=== PATIENT | female | born 2000 | race Two or more races ===

== ENCOUNTER 2024-08-06 10:52 | Outpatient (REF) | payer SELFPAY ==
[2024-08-06 13:34] LABS: Hemoglobin 14.9 g/dl (12.0-16.0); Mean Corpuscular HGB Conc 33.9 g/dl (31.0-35.0); Mean Corpuscular Hemoglobin 31.1 pg (27.0-33.0); Mean Corpuscular Volume 91.9 fL (80.0-98.0); Mean Platelet Volume 9.3 fL (9.4-12.3); Platelet Count 303 X10*3/uL (160-400); Red Blood Count 4.79 X10*6/uL (4.20-5.50); White Blood Count 5.5 X10*3/uL (4.8-10.8)
[2024-08-06 13:46] LABS: Estimated Average Glucose 105 mg/dL; Hemoglobin A1C 128.3711 umol/L; Hemoglobin A1c % 5.3 % (<6.0); Total Hemoglobin (HGBA1C) 3764.2248 umol/L
[2024-08-06 13:57] LABS: Alanine Aminotransferase 16 U/L (0-31); Albumin Level 4.7 g/dL (3.5-5.0); Alkaline Phosphatase 63 U/L (39-117); Anion Gap 14 (12-20); Aspartate Amino Transferase 20 U/L (5-31); Bilirubin Total 0.6 mg/dL (0.0-1.0); Blood Urea Nitrogen 10 mg/dL (9-16); Calcium 9.9 mg/dL (8.4-10.2); Carbon Dioxide 25 mmol/L (22-29); Chloride 103 mmol/L (96-108); Estimated Glomerular Filt Rate > 60; Glucose Random 87 mg/dL (60-115); Potassium 4.1 mmol/L (3.3-5.1); Sodium 138 mmol/L (135-145); Total Protein 8.3 g/dL (6.5-8.0)
[2024-08-06 14:02] LABS: Alanine Aminotransferase 15 U/L (0-31); Albumin Level 4.7 g/dL (3.5-5.0); Alkaline Phosphatase 62 U/L (39-117); Anion Gap 14 (12-20); Aspartate Amino Transferase 21 U/L (5-31); Bilirubin Total 0.6 mg/dL (0.0-1.0); Blood Urea Nitrogen 10 mg/dL (9-16); Calcium 9.9 mg/dL (8.4-10.2); Carbon Dioxide 25 mmol/L (22-29); Chloride 103 mmol/L (96-108); Cholesterol 234 mg/dL (<200); Estimated Glomerular Filt Rate > 60; Glucose Random 87 mg/dL (60-115); HDL Cholesterol 64 mg/dL (>40); LDL Cholesterol Calculated 150 mg/dL (<100); Potassium 4.2 mmol/L (3.3-5.1); Sodium 138 mmol/L (135-145); Total Protein 8.4 g/dL (6.5-8.0); Triglycerides 104 mg/dL (<150)
[2024-08-06 14:14] LABS: TSH reflex Free T4 0.59 uIU/mL (0.32-4.0)
[2024-08-07 08:10] LABS: HIV Num 1 72.01 S/CO (0.00-0.99)
[2024-08-07 08:13] LABS: Hepatitis A Antibody IgG REACTIVE (Nonreactive); ~Hepatitis A Antibody IgG 10.63 S/CO (0.00-0.99)
[2024-08-07 08:18] LABS: HBS Num1 0.48 mIU/mL (0-7.99); HBc Num1 0.09 S/CO (0.00-0.79); HBsAGNum1 0.53 S/CO (0.00-0.99); Hepatitis B Core Antibody Nonreactive (Nonreactive); Hepatitis B Surface Antigen Negative (Negative); ~HepC Num1 0.16 S/CO (0.00-0.79); ~Hepatitis B Surface Antibody NONREACTIVE (Nonreactive); ~Hepatitis C Antibody Nonreactive (Nonreactive)
[2024-08-07 08:27] LABS: Syphilis Screen Reactive (Nonreactive)
[2024-08-07 10:27] LABS: HIV Num 3 70.12 S/CO
[2024-08-07 10:28] LABS: HIV AB/AG Reactive (Nonreactive)
[2024-08-07 11:24] LABS: Cytomegalovirus Ab IgM <30.00 AU/mL; Varicella IgG Antibody 1.54 S/CO
[2024-08-07 17:23] LABS: Rubella IgG Antibody 2.61 Index; Rubeola IgG (Measles) <13.50 AU/mL
[2024-08-08 08:28] LABS: Toxoplasma IgM Antibody <8.00 AU/mL
[2024-08-08 15:23] LABS: HIV RNA PCR Qn Copies NOT DETECTED copies/mL (NOT DETECTED); HIV RNA PCR Qn Log Copies NOT DETECTED (NOT DETECTED)
[2024-08-08 17:59] LABS: HIV 1 Antibody POSITIVE (NEGATIVE); HIV 2 Antibody NEGATIVE (NEGATIVE)
[2024-08-09 03:54] LABS: TS Negative Control Passed; TS Panel A 0; TS Panel B 0; TS Positive Control Passed; TSpotTB Negative (Negative)
[2024-08-11 04:08] LABS: C. Trachomatis RNA TMA, Throat NOT DETECTED; N. gonorrhoeae RNA TMA, Throat NOT DETECTED
[2024-08-11 17:42] LABS: Absolute CD3 Count 1542 cells/uL (840-3060); Absolute CD4 Count 773 cells/uL (490-1740); Absolute CD8 Count 713 cells/uL (180-1170); Absolute Lymphocytes 1868 cells/uL (850-3900); CD4 CD8 Ratio 1.08 (0.86-5.00); Percent CD3 Cells 83 % (57-85); Percent CD4 Cells 41 % (30-61); Percent CD8 Cells 38 % (12-42)
[2024-08-12 22:44] LABS: Glucose-6-Phosphate Dehydrogen 13.9 U/g Hgb (7.0-20.5)
[2024-08-13 13:58] LABS: RPR Quantitative Non-Reactive (Nonreactive); T.Pallidum Particle Agg Test Reactive (Nonreactive)
[2024-08-20 14:13] LABS: HLA B 5701 Negative
== END 2024-08-06 10:53 | disposition home or self-care (01) ==
LOC: HO.HHCL 10:52
PROVIDERS: Internal Medicine; Student in an Organized Health Care Education/Training Program
DX: Z21 Asymptomatic human immunodeficiency virus [HIV] infection status (principal)
CPT/HCPCS: 36415; 80053; 80061; 81381; 82955; 83036; 84443; 85027; 86359; 86360; 86481; 86592; 86644; 86645; 86701; 86702; 86704; 86706; 86708; 86735; 86762; 86765; 86777; 86778; 86780; 86787; 86803; 87340; 87389; 87491; 87536; 87591

== ENCOUNTER 2024-09-26 16:43 | Outpatient (REF) | payer MEDICAID, SELFPAY ==
[2024-09-28 20:32] LABS: Trichomonas (NAAT) NOT DETECTED (NOT DETECTED)
[2024-09-28 20:59] LABS: C. trachomatis RNA TMA NOT DETECTED (NOT DETECTED); N. gonorrhoeae RNA TMA NOT DETECTED (NOT DETECTED)
== END 2024-09-26 16:44 | disposition home or self-care (01) ==
LOC: HO.HHCLNP 16:43
PROVIDERS: Visit Provider Advanced Practice Midwife
DX: Z12.4 Encounter for screening for malignant neoplasm of cervix (principal); Z11.3 Encounter for screening for infections with a predominantly sexual mode of transmission
CPT/HCPCS: 87491; 87591; 87661; 88175

== ENCOUNTER 2024-11-07 12:40 | Outpatient (REF) | payer MEDICAID, SELFPAY ==
--- OUTSIDE RECORDS SUMMARY | 2024-11-07 15:36 | XMS_ITS | Clinical Summary ---
Author Organization [facility] Address [address] [place] [address] Care Team Providers Care Rehab/Pre Vocational Counselor Name Role Phone Unavailable Primary Care Provider Unavailabl e Source Comments PLEASE NOTE, if this patient is a minor, it may be UNLAWFUL to discuss sensitive information that is contained in these records (such as FAMILY PLANNING, MENTAL HEALTH or SUBSTANCE ABUSE) with the minor patient's parent or other person without the patient's specific authorization.[facility] Allergies No known active allergies Medications No known medications Encounters Date Type Department Care Team Description 09/19/2024 1:00 PM EST Office Visit [facility] [address] [place] [phone] Keenan Quinones Partial bony impaction of tooth (Primary Dx) 09/19/2024 Travel from Last 3 Months Social History Tobacco Use Types Packs/Day Years Used Date Smoking Tobacco: Never Passive Smoke Exposure: Never Smokeless Tobacco: Never Tobacco Cessation:Counseling Given: Not Answered Social Connections Answer Date Recorded Connectedness 0 08/28/2024 Financial Resource Strain Answer Date R ecorded Financial Resource Strain 0 2023 Stress Answer Date Recorded Stress 0 08/28/2024 Physical Activity Answer Date Recorded Physical Activity 0 08/28/2024 Food Insecurity Answer Date Recorded Food 0 08/28/2024 Transportation Needs Answer Date Record ed Transportation 0 08/28/2024 Housing Stability Answer Date Recorded Housing 0 08/28/2024 Safety and Environment Answer Date Abel rded Safety 0 08/28/2024 Utilities Answer Date Recorded Utilities 0 08/28/2024 Employment Answer Date Recorded Stress 0 08/28/2024 Comments Unknown Sex and Gender Information Value Date Recorded Sex Assigned at Not on file Legal Sex Female 11:52 AM PST Gender Identity Not on file Sexual Orientation Not on file Last Filed Vital Signs Vital Sign Reading Time Taken Comments Blood Pressure 116/74 09/19/2024 1:11 PM EST Pulse 72 09/19/2024 1:11 PM EST Temperature - - Respiratory Rate - - Oxygen Saturation - - Inhaled Oxygen Concentration - - Weight - - Height - - Body Mass Index - - Plan of Treatment Upcoming Encounters Date Type Department Care Team (Late st Contact Info) Description 11/13/2024 3:00 PM EST Office Visit [facility] [address] [place] [phone] Donta Iraheta DDS [address] [place] [address] 03/20/2025 1:00 PM EDT Office Visit [facility] [address] [place] [phone] Keenan Quinones [address] [place], [place] [phone] Health Maintenance Due Date Last Done Comments HPV Screening 2000 Hepatitis C Screening 2000 Pap + HPV 2000 Chlamydia Screening 2013 Gonorrhea Screening 2013 Imm-Varicella (1 of 2 - 13+ 2-dose series) 2013 HIV Screening 2015 Imm-HPV (1 - 3-dose series) 2015 Relationship Safety Screening/Counseling 2015 Imm-DTaP/Tdap/Td (1 - Tdap) 2019 Imm-Hepatitis B (1 of 3 - 19+ 3-dose series) Cervical Cancer Screening 2021 Pap Smear 2021 [id number] ( - 2023- season) 2024 Imm-Influenza (#1) 2024 Alcohol and Drug Screen 09/12/2024 Depression Annual Screen 09/12/2024 Hypertension Screening (#1) 09/19/2025 Tobacco Screening 09/19/2025 09/19/2024 Dental BW 09/21/2025 09/19/2024 Dental Examination 09/21/2025 09/19/2024 Dental Perio Charting 09/21/2025 09/19/2024 Dental Prophy 09/21/2025 09/19/2024 Dental FMX/Pano 09/21/2029 09/19/2024 Cervical Ablation/Cold-Knife Conization Discontinued Cervical Cryotherapy Discontinued Colposcopy Discontinued Endometrial Biopsy Discontinued Excision/Leep Discontinued HPV Genotyping Discontinued Vaginal Pap Discontinued Vulvoscopy Discontinued Procedures Procedure Name Priority Date/Time Associated Diagnosis Comments DENTAL CASE MANAGEMENT - MOTIVATIONAL INTV Routine 09/19/2024 1:00 PM EST Partial bony impaction of tooth PROPHYLAXIS - ADULT Routine 09/19/2024 1 :00 PM EST Partial bony impaction of tooth INTRAORAL - COMP SERIES OF RADIOGRAPHIC IMAGES Routine 09/19/2024 1:00 PM EST Partial bony impaction of tooth COMP ORAL EVALUATION - NEW/ESTABLISHED PATIENT Routine 09/19/2024 1:00 PM EST Partial bony impaction of tooth CARIES RISK ASSESSMENT & DOC FINDING LOW RISK Routine 09/19/2024 1:00 PM EST Partial bony impaction of tooth NUTRITIONAL COUNSELING CONTROL OF DENTAL DISEASE Routine 09/19/2024 1:00 PM EST Partial bony impaction of tooth ORAL HYGIENE INSTRUCTIONS Routine 09/19/2024 1:00 PM EST Partial bony impaction of tooth ORAL CANCER SCREENING Routine 09/19/2024 1:00 PM EST Partial bony impaction of tooth CASE PRESENTATION SUBS DTL & EXTENSIVE TX PLN Routine 09/19/2024 1:00 PM EST Partial bony impaction of tooth 31 O COMPOSITE - WISDOM (NON BILLABLE) Routine 09/19/2024 12:00 AM EST 14 L(V) COMPOSITE - WISDOM (NON BILLABLE) Routine 09/19/2024 12:00 AM EST 8 MIL COMPOSITE - WISDOM (NON BILLABLE) Routine 09/19/2024 12:00 AM EST 9 MIL COMPOSITE - WISDOM (NON BILLABLE) Routine 09/19/2024 12:00 AM EST 9 ROOT CANAL - WISDOM (NO BILLABLE) Routine 09/19/2024 12:00 AM EST 8 ROOT CANAL - WISDOM (NO BILLABLE) Routine 09/19/2024 12:00 AM EST from Last 3 Months Insurance [place] MEDICAID [facility] [id number]
[2024-11-08 19:58] LABS: HIV RNA PCR Qn Copies NOT DETECTED copies/mL (NOT DETECTED); HIV RNA PCR Qn Log Copies NOT DETECTED (NOT DETECTED)
== END 2024-11-07 12:41 | disposition home or self-care (01) ==
LOC: HO.HHCL 12:40
PROVIDERS: Visit Provider Student in an Organized Health Care Education/Training Program
DX: Z21 Asymptomatic human immunodeficiency virus [HIV] infection status (principal)
CPT/HCPCS: 36415; 87536

== ENCOUNTER 2025-05-27 08:54 | Outpatient (REF) | payer MEDICAID, OTHER, SELFPAY ==
--- OUTSIDE RECORDS SUMMARY | 2025-05-27 10:17 | XMS_ITS | Clinical Summary ---
Author Organization [facility] Address [address] [place] [address] Care Team Providers Care Reconsignment Clerk Name Role Phone Unavailable Primary Care Provider [...] known active allergies Medications No known medications Social History Tobacco Use Types Packs/Day Years [...] Mass Index - - Plan of Treatment Health Maintenance Due Date Last Done Comments Anxiety Screening 2000 HPV Screening 2000 Hepatitis C Screening 2000 Pap + HPV 2000 Imm-Varicella (1 of 2 - 13+ 2-dose series) 2013 HIV Screening 2015 Imm-HPV (1 - 3-dose series) 2015 Relationship Safety Screening/Counseling 2015 Imm-DTaP/Tdap/Td (1 - Tdap) 2019 Imm-Hepatitis B (1 of 3 - 19+ 3-dose series) 9 Cervical Cancer Screening 2021 Pap Smear 2021 Alcohol and Drug Screen 09/12/2024 Depression Annual Screen 09/12/2024 [id number] ( season) 2025 Imm-Influenza (#1) 2025 Hypertension Screening (#1) 09/19/2025 Tobacco Screening 09/19/2025 09/19/2024 Dental BW 09/21/2025 09/19/2024 Dental Examination 09/21/2025 09/19/2024 Dental Perio Charting 09/21/2025 09/19/2024 Dental Prophy 09/21/2025 09/19/2024 Dental FMX/Pano 09/21/2029 09/19/2024 Cervical Ablation/Cold-Knife Conization Discontinued Cervical Cryotherapy Discontinued Colposcopy Discontinued Endometrial Biopsy Discontinued Excision/Leep Discontinued HPV Genotyping Discontinued Vaginal Pap Discontinued Vulvoscopy Discontinued Procedures Procedure Name Priority Date/Time Associated Diagnosis Comments INTRAORAL - COMP SERIES OF RADIOGRAPHIC IMAGES Routine 09/19/2024 1:00 PM EST Partial bony impaction of tooth PROPHYLAXIS - ADULT Routine 09/19/2024 1 :00 PM EST Partial bony impaction of tooth COMP ORAL EVALUATION - NEW/ESTABLISHED PATIENT Routine 09/19/2024 1:00 PM EST Partial bony impaction of tooth from Last 3 Months or Most Recently Relevant to Health Maintenance Insurance [place] MED[place] DENTAL [facility]
[2025-05-27 11:36] LABS: Appearance Urine Clear; Glucose Urine UA Negative (Negative); PH 5.5 (5.0-9.0); Specific Gravity - Urine 1.020 (1.005-1.025); UMIC TRIGGER UACC YES
[2025-05-27 11:58] LABS: HIV Num 1 45.81 S/CO (0.00-0.99)
[2025-05-27 13:32] LABS: HIV Num 2 46.69 S/CO; HIV Num 3 46.18 S/CO
[2025-05-28 17:59] LABS: HIV 1 Antibody POSITIVE (NEGATIVE); HIV 2 Antibody NEGATIVE (NEGATIVE)
== END 2025-05-27 08:55 | disposition home or self-care (01) ==
LOC: HO.HHCL 08:54
PROVIDERS: Internal Medicine; PCP Student in an Organized Health Care Education/Training Program; Visit Provider Student in an Organized Health Care Education/Training Program
DX: Z21 Asymptomatic human immunodeficiency virus [HIV] infection status (principal)
CPT/HCPCS: 36415; 81001; 86701; 86702; 87389

== ENCOUNTER 2025-07-29 09:02 | Outpatient (REF) | payer MEDICAID, OTHER, SELFPAY ==
[2025-07-29 12:15] LABS: MANUAL DIFF FLAG NO
[2025-07-29 12:33] LABS: Hematocrit 38.6 % (37.0-47.0); Hemoglobin 12.7 g/dl (12.0-16.0); Imm Gran Abs Auto 0.02 X10*3/uL (0.00-0.03); Imm Gran Pct Auto 0.3 % (0.0-0.4); Lymphocytes Absolute Auto 2.2 X10*3/uL (1.2-4.9); Mean Corpuscular HGB Conc 32.9 g/dl (31.0-35.0); Mean Corpuscular Hemoglobin 30.0 pg (27.0-33.0); Mean Corpuscular Volume 91.3 fL (80.0-98.0); NRBC Abs Auto 0.000 X10*3/uL (0.0-0.012); NRBC Pct Auto 0.0 /100WBC (0.0-0.2); Platelet Count 286 X10*3/uL (160-400); Red Blood Count 4.23 X10*6/uL (4.20-5.50); White Blood Count 6.1 X10*3/uL (4.8-10.8)
[2025-07-29 12:55] LABS: Alanine Aminotransferase 10 U/L (0-31); Albumin Level 4.1 g/dL (3.5-5.0); Alkaline Phosphatase 68 U/L (39-117); Anion Gap 11 (12-20); Aspartate Amino Transferase 25 U/L (5-31); Blood Urea Nitrogen 14 mg/dL (9-16); Calcium 9.1 mg/dL (8.4-10.2); Carbon Dioxide 26 mmol/L (22-29); Chloride 107 mmol/L (96-108); Cholesterol 170 mg/dL (<200); Estimated Glomerular Filt Rate > 60; HDL Cholesterol 51 mg/dL (>40); Potassium 4.2 mmol/L (3.3-5.1); Sodium 140 mmol/L (135-145); Total Protein 7.2 g/dL (6.5-8.0); Triglycerides 81 mg/dL (<150)
[2025-07-30 09:08] LABS: Rubeola IgG (Measles) <13.50 AU/mL
[2025-08-01 04:33] LABS: HIV RNA PCR Qn Copies NOT DETECTED copies/mL (NOT DETECTED); HIV RNA PCR Qn Log Copies NOT DETECTED (NOT DETECTED)
[2025-08-03 14:18] LABS: Absolute CD3 Count 1927 cells/uL (840-3060); Absolute CD8 Count 828 cells/uL (180-1170); Percent CD3 Cells 79 % (57-85); Percent CD8 Cells 34 % (12-42)
== END 2025-07-29 09:03 | disposition home or self-care (01) ==
LOC: HO.HHCL 09:02
PROVIDERS: PCP Student in an Organized Health Care Education/Training Program; Visit Provider Student in an Organized Health Care Education/Training Program
DX: Z01.84 Encounter for antibody response examination (principal); Z11.4 Encounter for screening for human immunodeficiency virus [HIV]
CPT/HCPCS: 36415; 80053; 80061; 85025; 86359; 86360; 86765; 87536